=== PATIENT | female | born 1945 | race Caucasian/White ===

== ENCOUNTER 2019-11-27 12:38 | Inpatient (IN) | payer MEDICARE, BC ==
[~2019-11-27] VITALS: Ht 167.6 cm; Wt 85.9 kg
[2019-11-27] MEDS ORDERED: LORA0.5T96 PO (13:30)
[2019-11-27] MEDS ORDERED: ASPI-612 PO (13:30)
[2019-11-27] MEDS ORDERED: EVOL140P3 SQ (13:30)
[2019-11-27] MEDS ORDERED: CEFD300C PO (13:30)
[2019-11-27] MEDS ORDERED: HYDR-2765 PO (13:30)
[2019-11-27] MEDS ORDERED: CARV3.12 PO (13:30)
[2019-11-27] MEDS ORDERED: PANT40TA3 PO (13:31)
[2019-11-27] MEDS ORDERED: GABA-586 PO (13:31)
[2019-11-27] MEDS ORDERED: ZOLP5TAB PO (13:31)
[2019-11-27] MEDS ORDERED: TIOT18CA IH (13:31)
[2019-11-27] MEDS ORDERED: HYDR200T71 PO (13:31)
[2019-11-27] MEDS ORDERED: POLY17PO5 PO (13:31)
[2019-11-27] MEDS ORDERED: FURO-69 PO (13:31)
[2019-11-27] MEDS ORDERED: MELO15TA6 PO (13:31)
--- NOTE | 2019-11-27 13:40 | NUR ---
Admission Note with Justification for Admission to [facility] Patient admitted to [facility] for protective oversight for emergency stabilization of acute psychiatric crisis. Pt admitted from: [facility] 11/19 Mode of arrival: EMS Accompanied By: [facility] Staff Precipitating behaviors that initiated intake and admission: anxiety, depression, crying, yelling Description of failure of out patient attempts at stabilization in previous setting list behavior and medication trials: Ativan Behaviors and assessment findings upon admission: calm, disorganized Plan: Admit for protective oversight for adjustment and stabilization of medications, behaviors and mood. Intense treatment regimen including groups, medication adjustments, therapy, consistent regimen for ADL's, self care, and sleep hygiene. Daily monitoring by Inpatient staff, Psychiatry, and Medical Physician.
[2019-11-27] MEDS ORDERED: MAGNESIUM HYDROXIDE 2,400 MG/30 ML ORAL.SUSP. PO PRN (14:30)
[2019-11-27] MEDS ORDERED: MAG HYDROX/AL HYDROX/SIMETH 30 ML ORAL.SUSP PO PRN (14:30)
[2019-11-27] MEDS ORDERED: HYDROcodone/APAP 7.5/325MG 1 TAB TABLET PO PRN (14:30)
[2019-11-27] MEDS ORDERED: ACETAMINOPHEN 325 MG TABLET PO PRN (14:30)
[2019-11-27] MEDS ORDERED: ZOLPIDEM 5 MG TABLET. PO PRN (14:30)
[2019-11-27] MEDS ORDERED: METHYL SALICYLATE/MENTHOL TOPICAL OINTMENT 57GM TUBE. TP PRN (14:30)
[2019-11-27] MEDS ORDERED: POLYETHYLENE GLYCOL 3350 17 GM PACKET. PO PRN (14:30)
[2019-11-27 14:36] VITALS: BP 125/85
[2019-11-27 15:23] LABS: BASO # 0.1 x10^3/uL (0.0-0.2); BASO % 1 % (0-3); EOS # 0.3 x10^3/uL (0.0-0.7); EOS % 4 % (0-3); HEMATOCRIT 34.7 % (36.0-47.0); HEMOGLOBIN 10.6 g/dL (12.0-15.5); LYMPH # 1.6 x10^3/uL (1.0-4.8); LYMPH % 22 % (24-48); MEAN CORPUSCULAR HEMOGLOBIN 27 pg (25-35); MEAN CORPUSCULAR HGB CONC 31 g/dL (31-37); MEAN CORPUSCULAR VOLUME 89 fL (79-100); MONO # 0.8 x10^3/uL (0.0-1.1); MONO % 11 % (0-9); NEUT # 4.5 x10^3uL (1.8-7.7); NEUT % 62 % (31-73); PLATELET COUNT 220 x10^3/uL (140-400); RED BLOOD COUNT 3.91 x10^6/uL (3.50-5.40); RED CELL DISTRIBUTION WIDTH 17.8 % (11.5-14.5); WHITE BLOOD COUNT 7.4 x10^3/uL (4.0-11.0)
[2019-11-27 15:59] LABS: ALBUMIN 3.5 g/dL (3.4-5.0); ALBUMIN/GLOBULIN RATIO 1.3 (1.0-1.7); CALCIUM 9.1 mg/dL (8.5-10.1); CREATININE 1.4 mg/dL (0.6-1.0); POTASSIUM 4.1 mmol/L (3.5-5.1); TOTAL BILIRUBIN 0.6 mg/dL (0.2-1.0); TOTAL PROTEIN 6.3 g/dL (6.4-8.2)
[2019-11-27] MEDS: IPRATROPIUM/ALBUTEROL 20/100mcg/INH INHALER. INH SCH ×2 (16:00→20:00)
[2019-11-27] MEDS: CARVEDILOL 3.125 MG TABLET PO SCH (17:00)
--- NOTE | 2019-11-27 17:08 | EKG ---
[address] [address] Test Date: 2019-11-27 Test Time: 17:00:41 Pat Name: GRIS NAPIER Department: Room: [address] [place] [address] Gender: F Agent Producer: : [id number] Requested By: ZAYNAB SIMPSON Order Number: [id number] Reading MD: Gibran Burrell Measurements Intervals [place] Rate: 82 P: 42 AR: 176 QRS: 12 QRSD: 116 T: -5 QT: 386 QTc: 454 Interpretive Statements SINUS RHYTHM VENTRICULAR PREMATURE COMPLEX(ES) LOW LIMB LEAD VOLTAGE ABNORMAL ECG RI6.01 No previous ECG available for comparison Electronically Signed On 11-30-2019 8:45:01 CDT by Gibran Burrell
[2019-11-27] MEDS: LORazepam 0.5 MG TABLET PO PRN (17:21)
--- NOTE | 2019-11-27 17:22 | NUR ---
Pt up for supper at bedside table. Pt anxious. Asking for belongings and cell phone. Difficult to redirect. Ativan given.
--- NOTE | 2019-11-27 19:38 | NUR ---
Pt sleeping in bed easily awaken and is pleasant and cooperative. She said she is glad to be able to sleep now. No behaviors at this time. )2 on a 2l per nc.
[2019-11-27] MEDS: HYDROXYCHLOROQUINE 200 MG TABLET PO SCH (21:00)
[2019-11-27] MEDS: CEFDINIR 300 MG CAPSULE PO SCH (21:31)
[2019-11-27] MEDS: PANTOPRAZOLE 40 MG TABLET. PO SCH (21:31)
[2019-11-27] MEDS: MELOXICAM 15 MG TABLET. PO SCH (21:31)
[2019-11-27] MEDS: GABAPENTIN 300 MG CAPSULE. PO SCH (21:34)
[2019-11-27] MEDS: NYSTATIN TOPICAL POWDER 15GM BOTTLE. TP SCH (21:35)
--- NOTE | 2019-11-27 22:00 | PDOC ---
Exam Note: Jesus Note: Please also refer to the separate dictated note~for this date of service dictated separately. Discussed the patient with Nursing staff reviewed the chart.~Reviewed interim history and current functioning. Reviewed vital signs,~Labs/ Radiology~and current medications noted below. Continue current treatment with the changes noted in the dictated addendum note Assessment: Vital Signs/I&O: Vital Signs Date Time Temp Pulse Resp B/P (MAP) Pulse Ox O2 Delivery O2 Flow Rate FiO2 11/27/19 17:00 86 125/85 11/27/19 14:36 97.9 18 98 Nasal Cannula 2.0 Labs: Laboratory Tests Test 11/27/19 15:10 White Blood Count 7.4 x10^3/uL (4.0-11.0) Red Blood Count 3.91 x10^6/uL (3.50-5.40) Hemoglobin 10.6 g/dL (12.0-15.5) L Hematocrit 34.7 % (36.0-47.0) L Mean Corpuscular Volume 89 fL (79-100) Mean Corpuscular Hemoglobin 27 pg (25-35) Mean Corpuscular Hemoglobin Concent 31 g/dL (31-37) Red Cell Distribution Width 17.8 % (11.5-14.5) H Platelet Count 220 x10^3/uL (140-400) Neutrophils (%) (Auto) 62 % (31-73) Lymphocytes (%) (Auto) 22 % (24-48) L Monocytes (%) (Auto) 11 % (0-9) H Eosinophils (%) (Auto) 4 % (0-3) H Basophils (%) (Auto) 1 % (0-3) Neutrophils # (Auto) 4.5 x10^3uL (1.8-7.7) Lymphocytes # (Auto) 1.6 x10^3/uL (1.0-4.8) Monocytes # (Auto) 0.8 x10^3/uL (0.0-1.1) Eosinophils # (Auto) 0.3 x10^3/uL (0.0-0.7) Basophils # (Auto) 0.1 x10^3/uL (0.0-0.2) Sodium Level 141 mmol/L (136-145) Potassium Level 4.1 mmol/L (3.5-5.1) Chloride Level 101 mmol/L (98-107) Carbon Dioxide Level 31 mmol/L (21-32) Anion Gap 9 (6-14) Blood Urea Nitrogen 23 mg/dL (7-20) H Creatinine 1.4 mg/dL (0.6-1.0) H Estimated GFR (Cockcroft-Gault) 37.0 BUN/Creatinine Ratio 16 (6-20) Glucose Level 110 mg/dL (70-99) H Calcium Level 9.1 mg/dL (8.5-10.1) Magnesium Level 2.0 mg/dL (1.8-2.4) Total Bilirubin 0.6 mg/dL (0.2-1.0) Aspartate Amino Transferase (AST) 28 U/L (15-37) Alanine Aminotransferase (ALT) 23 U/L (14-59) Alkaline Phosphatase 145 U/L (46-116) H Total Protein 6.3 g/dL (6.4-8.2) L Albumin 3.5 g/dL (3.4-5.0) Albumin/Globulin Ratio 1.3 (1.0-1.7) Current Medications: Meds: Current Medications Medications (Trade) Dose Ordered Sig/Karla Route PRN Reason Start Time Stop Time Status Last Admin Dose Admin Carvedilol (Coreg) 3.125 mg BIDWMEALS PO 11/27/19 17:00 11/27/19 17:00 Cefdinir (Omnicef) 300 mg BID PO 11/27/19 21:00 11/28/19 21:01 11/27/19 21:31 Gabapentin (Neurontin) 300 mg TID PO 11/27/19 21:00 11/27/19 21:34 Lorazepam (Ativan) 0.5 mg PRN BID PRN PO ANXIETY / AGITATION 11/27/19 14:30 11/27/19 17:21 Meloxicam (Mobic) 15 mg HS PO 11/27/19 21:00 11/27/19 21:31 Pantoprazole Sodium (Protonix) 40 mg HS PO 11/27/19 21:00 11/27/19 21:31 Albuterol/ Ipratropium (Combivent Respimat 20-100 Mcg) 1 puff RTQID INH 11/27/19 16:00 11/27/19 16:00 Nystatin (Nystop) 1 luli BID TP 11/27/19 21:00 11/27/19 21:35 I have reviewed the current psychotropics carefully including drug interactions. Risk benefit ratio favors no change other than as noted in my dictated progress note. Diagnosis: Problems: (1) Anxiety disorder ZAYNAB SIMPSON MD November 27, 2019 21:59
[2019-11-28 03:07] LABS: HEMOGLOBIN A1C 5.8 % (4.8-5.6)
[2019-11-28 05:48] VITALS: BP 126/79
[2019-11-28] MEDS: HYDROcodone/APAP 7.5/325MG 1 TAB TABLET PO SCH ×5 (06:00→23:49)
[2019-11-28 07:07] LABS: THYROXINE 8.3 ug/dL (4.5-12.0)
--- NOTE | 2019-11-28 07:16 | NUR ---
Pt c/o feeling like she can't breathe. Upon assessment vss 130/80, 84, 96% 2L NC 20. Pt is not short of air and is able to carry on a conversation although eye contact is poor. Pt is A & O X 4. Pt is able to answer questions such as how many quarters are in a dollar. Pt is warm, pink, dry. capillary refill is appropriate. no signs or symptoms of cyanosis. Oxygen is on and functioning properly, tubing is not kinked. When speaking with the pt it is determined pt is feeling anxious about the being one of her first days here. PRN ativan offered and accepted by pt.
[2019-11-28] MEDS: LORazepam 0.5 MG TABLET PO PRN ×2 (07:21→20:23)
[2019-11-28] MEDS: IPRATROPIUM/ALBUTEROL 20/100mcg/INH INHALER. INH SCH ×4 (08:35→20:22)
[2019-11-28] MEDS: FUROSEMIDE 20 MG TABLET PO SCH (08:36)
[2019-11-28] MEDS: CEFDINIR 300 MG CAPSULE PO SCH ×2 (08:36→20:22)
[2019-11-28] MEDS: NYSTATIN TOPICAL POWDER 15GM BOTTLE. TP SCH ×2 (08:36→20:22)
[2019-11-28] MEDS: GABAPENTIN 300 MG CAPSULE. PO SCH ×3 (08:36→20:23)
[2019-11-28] MEDS: CARVEDILOL 3.125 MG TABLET PO SCH ×2 (08:36→17:08)
[2019-11-28] MEDS: ASPIRIN ENTERIC COATED 81 MG TABLET.DR. PO SCH (08:36)
[2019-11-28] MEDS: HYDROXYCHLOROQUINE 200 MG TABLET PO SCH ×2 (09:00→20:22)
--- NOTE | 2019-11-28 09:26 | NUR ---
Pt is calm, cooperative and compliant. No agitation, no aggression, no hallucinations, no delusions noted. Pt is compliant with medication and assessment.
[2019-11-28 10:50] LABS: THYROID STIM HORMONE (TSH) 3.946 uIU/mL (0.358-3.740)
[2019-11-28 15:51] VITALS: BP 123/65
[2019-11-28] MEDS: MELOXICAM 15 MG TABLET. PO SCH (20:22)
[2019-11-28] MEDS: PANTOPRAZOLE 40 MG TABLET. PO SCH (20:22)
--- NOTE | 2019-11-28 22:06 | PDOC ---
Exam Note: Jesus Note: Please also refer to the separate dictated note~for this date of service dictated separately. Discussed the patient with Nursing staff reviewed the chart.~Reviewed interim history and current functioning. Reviewed vital signs,~Labs/ Radiology~and current medications noted below. Continue current treatment with the changes noted in the dictated addendum note Assessment: Vital Signs/I&O: Vital Signs Date Time Temp Pulse Resp B/P (MAP) Pulse Ox O2 Delivery O2 Flow Rate FiO2 11/28/19 18:09 20 11/28/19 17:08 82 123/65 11/28/19 15:51 97.3 98 2.0 11/28/19 05:48 Nasal Cannula Current Medications: Meds: Current Medications Medications (Trade) Dose Ordered Sig/Karla Route PRN Reason Start Time Stop Time Status Last Admin Dose Admin Aspirin (Aspirin Enteric Coated) 81 mg DAILY PO 11/28/19 09:00 11/28/19 08:36 Furosemide (Lasix) 20 mg DAILY PO 11/28/19 09:00 11/28/19 08:36 Acetaminophen/ Hydrocodone Bitart (Lortab 7.5/325) 1 tab Q6HRS PO 11/28/19 00:00 11/28/19 17:09 I have reviewed the current psychotropics carefully including drug interactions. Risk benefit ratio favors no change other than as noted in my dictated progress note. Diagnosis: Problems: (1) Anxiety disorder ZAYNAB SIMPSON MD November 28, 2019 22:06
--- NOTE | 2019-11-28 23:07 | NUR ---
Pt located in her room sitting in a chair. Pt anxious and requested PRN Ativan with HS medications. Compliant with whole medications. Pt A/O x4, pleasant and cooperative. Pt states that she has chronic back pain, rating her pain 8/10. Pt unable to sleep, PRN Ambien administered at 2200 per pt request. Pt currently sleeping in bed at this time.
[2019-11-29] MEDS: HYDROcodone/APAP 7.5/325MG 1 TAB TABLET PO SCH ×4 (05:47→23:59)
[2019-11-29 05:48] VITALS: BP 142/86
--- NOTE | 2019-11-29 06:33 | NUR ---
Pt has been labile and confused throughout the night. Pt crying at times, angry and upset, and then laughing uncontrollably at other times. Pt restless and attempting to get out of bed unassisted many times during the night.
[2019-11-29] MEDS: GABAPENTIN 300 MG CAPSULE. PO SCH ×3 (07:50→20:07)
[2019-11-29] MEDS: ASPIRIN ENTERIC COATED 81 MG TABLET.DR. PO SCH (07:50)
[2019-11-29] MEDS: HYDROXYCHLOROQUINE 200 MG TABLET PO SCH ×2 (07:50→20:07)
[2019-11-29] MEDS: NYSTATIN TOPICAL POWDER 15GM BOTTLE. TP SCH (07:50)
[2019-11-29] MEDS: IPRATROPIUM/ALBUTEROL 20/100mcg/INH INHALER. INH SCH ×4 (07:50→20:07)
[2019-11-29] MEDS: CARVEDILOL 3.125 MG TABLET PO SCH ×2 (07:50→17:06)
[2019-11-29] MEDS: FUROSEMIDE 20 MG TABLET PO SCH (07:50)
[2019-11-29] MEDS: LORazepam 0.5 MG TABLET PO PRN ×2 (07:51→20:07)
--- NOTE | 2019-11-29 08:26 | NUR ---
Ativan 0.5mg given per pt behaviors. See PHONOGRAPH MECHANIC note.
[2019-11-29] MEDS ORDERED: traZODone 50 MG TABLET. PO PRN (10:15)
[2019-11-29] MEDS: LURASIDONE 40 MG TABLET. PO SCH (12:22)
--- NOTE | 2019-11-29 12:33 | CONS ---
DATE OF CONSULTATION: 11/29/2019 MEDICAL CONSULTATION NOTE ATTENDING PHYSICIAN: Azeem Cruz MD REASON FOR CONSULTATION: We are asked to see this patient for medical consultation. HISTORY OF PRESENT ILLNESS: The patient is a very pleasant 74-year-old female admitted a couple days ago with agitation, yelling, depression, and some paranoia. She is quite calm when I saw her. She is a little forgetful. She came from home. Lives with her in this region. PAST MEDICAL HISTORY: Significant for generalized anxiety disorder, some underlying dementia, anxiety, depression, gastroesophageal reflux disease and degenerative arthritis. CURRENT MEDICINES: Reviewed. She is on Tylenol, Mylanta, albuterol, Coreg, Lasix, Neurontin, hydrocodone p.r.n., lorazepam, Latuda, magnesium, Mobic, multi ointment balm, nystatin, Zyprexa Zydis, Protonix, MiraLax, Desyrel, and Ambien. ALLERGIES: She has allergies to sulfa drugs, HALDOL, SULFA and TRIMETHOPRIM. Exact cause is unclear. SOCIAL HISTORY: She was a smoker at one time. She does not drink. She is not actively smoking. FAMILY HISTORY: Unobtainable. REVIEW OF SYSTEMS: Significant for the recent anxiety. She does not remember much and could not give any further details. PHYSICAL EXAMINATION: GENERAL: When I saw her, this is a pleasant female who was in no acute distress. INITIAL VITAL SIGNS: Today showed a blood pressure of 142/86, her pulse is 87 and regular, temperature is 97.4 degrees Fahrenheit, oxygen saturation 96% on 2 liters of nasal cannula. HEENT: Head is without trauma. Pupils are reactive. Sclerae is nonicteric. Oropharynx is clear. NECK: Supple. LUNGS: Good breath sounds. No wheezing or rales. CARDIOVASCULAR: Showed regular heart tones. No gallops, no murmurs. Peripheral pulses are palpable and full. ABDOMEN: Obese, protuberant. No organomegaly. Bowel sounds are hypoactive. EXTREMITIES: Show no cyanosis or edema. NEUROLOGIC: Focally intact. Speech is fluent. She was able to respond to some questions. There are some memory issues that are noticeable. PERTINENT LABORATORY STUDIES: Her hemoglobin is 10.6 g/dL with a white count of 7400. Electrolytes were within normal range. Creatinine is 1.4 mg/dL, potassium 4.1 mEq. Serum iron is at 22. Hemoglobin A1c is 5.8. TSH is normal at 3.9. Transaminases and liver function are within normal range. ASSESSMENT: 1. A 74-year-old female with anxiety and behavioral issues admitted for further treatment and evaluation. 2. Probable underlying dementia. 3. Degenerative arthritis. 4. She has iron deficiency anemia. 5. Chronic obstructive pulmonary disease, on supplemental oxygen. 6. History of coronary artery bypass and graft. RECOMMENDATIONS: 1. I reviewed her medicines. 2. Lab work has been reviewed. 3. Diet as tolerated. 4. She is medically stable at this time. Thank you again for asking me to see this patient in consultation. We shall gladly follow along closely during her inpatient stay. ALLA HADLEY MD DR: TAMIKO/bill JOB#: [id number] / [id number]
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
--- NOTE | 2019-11-29 14:08 | NUR ---
Pt anxious and tearful. Thinks collapsed in parking lot and was taken to [facility]. Pt not redirectable. Zydis given. Pt started on Latuda as ordered.
[2019-11-29 15:42] VITALS: BP 110/75
--- NOTE | 2019-11-29 16:41 | NUR ---
Pt spoke with on phone. was somewhat comforted. Pt returned to her bed and laid down. Still intermittently calling out someones name or talking to self. Has been compliant with meds.
[2019-11-29] MEDS ORDERED: NYSTATIN TOPICAL POWDER 15GM BOTTLE. TP PRN (20:00)
[2019-11-29] MEDS: MELOXICAM 15 MG TABLET. PO SCH (20:07)
[2019-11-29] MEDS: PANTOPRAZOLE 40 MG TABLET. PO SCH (20:07)
[2019-11-29] MEDS: traZODone 50 MG TABLET. PO SCH (20:07)
--- NOTE | 2019-11-29 21:52 | PDOC ---
Exam Note: Jesus Note: Please also refer to the separate dictated note~for this date of service dictated separately.~Patient seen individually. Discussed the patient with Nursing staff reviewed the chart.~Reviewed interim history and current functioning. Reviewed vital signs,~Labs/ Radiology~and current medications noted below. Continue current treatment with the changes noted in the dictated addendum note Assessment: Vital Signs/I&O: Vital Signs Date Time Temp Pulse Resp B/P (MAP) Pulse Ox O2 Delivery O2 Flow Rate FiO2 11/29/19 17:06 75 110/75 11/29/19 15:42 98.6 20 95 2.0 11/28/19 05:48 Nasal Cannula I & O 11/28/19 11/28/19 11/29/19 15:00 23:00 07:00 Intake Total 840 ml 240 ml 400 ml Balance 840 ml 240 ml 400 ml Current Medications: Meds: Current Medications Medications (Trade) Dose Ordered Sig/Karla Route PRN Reason Start Time Stop Time Status Last Admin Dose Admin Trazodone HCl (Desyrel) 50 mg QHS PO 11/29/19 21:00 11/29/19 20:07 Trazodone HCl (Desyrel) 50 mg PRN QHS PRN PO INSOMNIA 11/29/19 10:15 11/29/19 21:38 Olanzapine (ZyPREXA ZYDIS) 2.5 mg PRN Q2HR PRN PO ANXIETY / AGITATION 11/29/19 10:15 11/29/19 20:58 Lurasidone HCl (Latuda) 20 mg DAILY PO 11/29/19 11:00 12/02/19 08:00 11/29/19 12:22 I have reviewed the current psychotropics carefully including drug interactions. Risk benefit ratio favors no change other than as noted in my dictated progress note. Diagnosis: Problems: (1) Mild cognitive impairment (2) Major depressive disorder with psychotic features (3) Anxiety disorder ZAYNAB SIMPSON MD November 29, 2019 21:52
[2019-11-29] MEDS ORDERED: OLANZapine 2.5 MG TABLET PO ONE (22:30)
[2019-11-29] MEDS: hydrOXYzine HCL 25 MG TABLET PO PRN ×2 (22:33→23:59)
--- NOTE | 2019-11-29 23:42 | NUR ---
Pt extremely anxious this evening. Pt's bed alarm was going off early in the shift and staff found pt crawling around on the floor looking for her "3 pills" that she dropped. Pt refused to believe this RN that pt was not given 3 pills. Pt stated they were just in my hand. Pt more confused this evening. Compliant with whole medications. Pt extremely restless and compulsive. Once pt was placed in bed, pt asked to be moved to her chair. Pt was transferred from bed to chair and back to bed x2 until she was informed that she would be staying in bed the rest of the night. Pt taken to the bathroom x2 where she was unable to void. Bladder scan performed, revealing <130cc. While in bed, pt has attempted to get out of bed continuously. Pt has been fidgeting with her O2 tubing, her gown, her sheets, her pillows, anything that she can touch. Pt has been constantly hallucinating, carrying on conversations with people that are not here and seeing things. Staff has been 1:1 at pt's bedside continuously since 2099. Pt has been given multiple PRNs and Dr. Cruz has been paged for new orders. Ativan @2029; Zyprexa @2099; repeat Trazodone @2139; Zyprexa 5mg x1 @2029, Hydroxyzine @2029. Staff currently at bedside. Will continue to monitor. Addendum: 11/30/19 at 0018 by CYNDY KOCH RN Correction: Zyprexa 5mg x1 and Hydroxyzine administered at 2230. Repeat Hydroxyzine administered at 2350 r/t pt's restlessness. Staff continues to be 1:1 with pt.
[2019-11-30] MEDS: HYDROcodone/APAP 7.5/325MG 1 TAB TABLET PO SCH ×3 (06:01→16:37)
--- NOTE | 2019-11-30 06:21 | NUR ---
PRN's not effective with pt. Pt awake all night, extremely restless and fidgeting non stop. Pt disrobing, pulling at sheets, taking off O2 tubing. Pt constantly responding to auditory and visual hallucinations. Pt yelling out. Pt became more agitated and combative as the night went on; attempting to hit and kick staff when redirecting. Pt was a 1:1 with staff at bedside all night.
[2019-11-30] MEDS: FUROSEMIDE 20 MG TABLET PO SCH (07:50)
[2019-11-30] MEDS: GABAPENTIN 300 MG CAPSULE. PO SCH ×3 (07:50→21:13)
[2019-11-30] MEDS: CARVEDILOL 3.125 MG TABLET PO SCH ×3 (07:50→16:38)
[2019-11-30] MEDS: ASPIRIN ENTERIC COATED 81 MG TABLET.DR. PO SCH (07:50)
[2019-11-30] MEDS: LURASIDONE 40 MG TABLET. PO SCH (07:51)
[2019-11-30] MEDS: HYDROXYCHLOROQUINE 200 MG TABLET PO SCH ×2 (07:51→21:13)
[2019-11-30] MEDS: IPRATROPIUM/ALBUTEROL 20/100mcg/INH INHALER. INH SCH ×5 (07:51→21:14)
--- NOTE | 2019-11-30 08:30 | NUR ---
Patient is restless, agitated and delusional. She continuously is getting up out of bed, sitting in her chair, and moving back to bed within a few minutes. She has had frequent trips to the restroom without output. At one point she was demanding to be allowed to go upstairs, then she wanted a large piece of bread. Verbal redirection not effective, patient is not retaining information. She was unable to recognize staff that had been in her room multiple times this morning. PRN medication provided per eMAR, will continue to monitor.
[2019-11-30] MEDS: LORazepam 0.5 MG TABLET PO PRN (08:34)
[2019-11-30] MEDS ORDERED: LURASIDONE 40 MG TABLET. PO SCH (09:00)
[2019-11-30 09:48] VITALS: BP 139/75
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
--- NOTE | 2019-11-30 12:26 | NUR ---
Patient was talking to herself while lying in bed when approached for afternoon medications. Patient continues attempting to get out of bed on her own despite being very unsteady on her feet. Scheduled medications provided per eMAR and patient assisted into her chair for lunch. She continues to be restless and disorganized; will continue to monitor.
[2019-11-30 13:53] LABS: BACTERIA,URINE 0 /HPF (0-FEW); BILIRUBIN,URINE NEG (NEG); CLARITY,URINE HAZY; COLOR,URINE YELLOW; GLUCOSE,URINE NEG (NEG); NITRITE,URINE NEG (NEG); SQUAMOUS EPITHELIAL CELL,UR FEW /LPF; UROBILINOGEN,URINE 0.2 mg/dL (0.2 mg/dL)
[2019-11-30 13:54] LABS: HYALINE CASTS, URINE MOD /HPF
[2019-11-30 13:58] LABS: WBC,URINE 20-40 /HPF (0-4)
[2019-11-30 16:00] VITALS: BP 123/79
[2019-11-30] MEDS: PANTOPRAZOLE 40 MG TABLET. PO SCH (21:13)
[2019-11-30] MEDS: traZODone 50 MG TABLET. PO SCH (21:13)
[2019-11-30] MEDS: MELOXICAM 15 MG TABLET. PO SCH (21:13)
--- NOTE | 2019-11-30 22:04 | PDOC ---
Exam Note: Jesus Note: Please also refer to the separate dictated note~for this date of service dictated separately.~Patient seen individually. Discussed the patient with Nursing staff reviewed the chart.~Reviewed interim history and current functioning. Reviewed vital signs,~Labs/ Radiology~and current medications noted below. Continue current treatment with the changes noted in the dictated addendum note Assessment: Vital Signs/I&O: Vital Signs Date Time Temp Pulse Resp B/P (MAP) Pulse Ox O2 Delivery O2 Flow Rate FiO2 11/30/19 19:20 18 94 Room Air 11/30/19 16:38 104 123/79 11/30/19 16:00 97.7 2.0 I & O 11/29/19 11/29/19 11/30/19 15:00 23:00 07:00 Intake Total 600 ml 480 ml Balance 600 ml 480 ml Labs: Laboratory Tests Test 11/30/19 12:55 Urine Collection Type Unknown Urine Color Yellow Urine Clarity Hazy Urine pH 5.0 Urine Specific Dundee >=1.030 Urine Protein 100 mg/dl (NEG-TRACE) Urine Glucose (UA) Neg mg/dL (NEG) Urine Ketones (Stick) Neg mg/dL (NEG) Urine Blood Trace (NEG) Urine Nitrite Neg (NEG) Urine Bilirubin Neg (NEG) Urine Urobilinogen Dipstick 0.2 mg/dL (0.2 mg/dL) Urine Leukocyte Esterase Trace (NEG) Urine RBC 3-5 /HPF (0-2) Urine WBC 20-40 /HPF (0-4) Urine Squamous Epithelial Cells Few /LPF Urine Bacteria 0 /HPF (0-FEW) Urine Hyaline Casts Mod /HPF Urine Mucus Mod /LPF Current Medications: Meds: Current Medications Medications (Trade) Dose Ordered Sig/Karla Route PRN Reason Start Time Stop Time Status Last Admin Dose Admin Olanzapine (ZyPREXA) 5 mg 1X ONCE PO 11/29/19 22:30 11/29/19 22:31 DC 11/29/19 22:32 Hydroxyzine HCl (Atarax) 25 mg 1X PRN PO ANXIETY / AGITATION 11/29/19 22:30 11/30/19 07:00 DC 11/29/19 23:59 I have reviewed the current psychotropics carefully including drug interactions. Risk benefit ratio favors no change other than as noted in my dictated progress note. Diagnosis: Problems: (1) Anxiety disorder (2) Mild cognitive impairment (3) Major depressive disorder with psychotic features ZAYNAB SIMPSON MD November 30, 2019 22:03
--- NOTE | 2019-11-30 23:46 | PN ---
DATE: 11/29/2019 PSYCHIATRIC PROGRESS NOTE This late entry 11/29/2019 covers elements not covered in my initial note. SUBJECTIVE: I met with the patient evening of 11/29/2019 with MINNIE Robles. After my rounds and late at night around 10:15 p.m., I was called by MINNIE Mckeon on account of the patient's marked restlessness, anxiety, paranoia, unable to sit still despite receiving trazodone and 2 doses of Zyprexa and 1 dose of Ativan 0.5 mg and we added hydroxyzine p.r.n. and an additional dosage of Zyprexa 5 mg x 1 for her paranoia, psychosis. She was restless much of the day, calling out for her who she felt was in the parking lot and had collapsed. Suspicious. She is hard of hearing, which complicates her presentation. REVIEW OF SYSTEMS: No CV, , pulmonary, eye system symptoms on review. MENTAL STATUS EXAM: Oriented to herself and situation. Speech has some latency, coherent, can be little pressured at times. Abstraction fair, computation impaired, language function intact. Mood and affect remains labile. LABORATORY DATA: Reviewed. IMPRESSION: Major depressive disorder; mild cognitive impairment; psychotic disorder unspecified, rule out bipolar disorder, unspecified. Rest unchanged. PLAN: The patient's phenelzine has been stopped. She has been started on Latuda as a mood stabilizer, trazodone p.r.n., Zyprexa p.r.n. and above changes as noted. We will adjust further as clinically indicated. ZAYNAB SIMPSON MD DR: JEREMIE/bill JOB#: [id number] / [id number]
--- NOTE | 2019-12-01 02:44 | NUR ---
Nursing Note The patient was located in her room for her assessment and medication pass. The patient took her medication whole. The patient was initially resistive to all interactions with this nurse but after introductions and a second attempt the patient was pleasant and cooperative. The patient is currently sleeping in her room.
[2019-12-01] MEDS: HYDROcodone/APAP 7.5/325MG 1 TAB TABLET PO SCH ×4 (06:00→16:34)
[2019-12-01 06:08] VITALS: BP 123/76
[2019-12-01] MEDS ORDERED: EVOLOCUMAB 140 MG SQ SCH (09:00)
--- NOTE | 2019-12-01 09:14 | PN ---
DATE: 11/30/2019 PSYCHIATRIC PROGRESS NOTE This late entry 11/29 covers elements not covered in my initial note. SUBJECTIVE: I met with the patient evening of 11/29 on audiovisual rounds in previous evening, had been called by MINNIE Mckeon, as an emergency around 10:30 p.m. The patient was extremely agitated, restless, paranoid. Received multiple PRNs including Ativan, Zyprexa, trazodone, repeat Zyprexa and then hydroxyzine She has appeared quite sedated, confused during the day on 11/29. Part of this could be the multiple PRNs she received previous night and she did not sleep well even with all of that. CT head shows no acute changes, but there is cerebral volume loss, chronic small vessel ischemic disease, thickened mucosa in the left maxillary sinus. Will defer to Dr. Escalante. REVIEW OF SYSTEMS: Hard of hearing, impaired ambulation, is quite confused. No CV, GI, or pulmonary system symptoms on review. MENTAL STATUS EXAMINATION: The patient appears quite confused, somewhat sedated with mood lability. I met with her on audiovisual rounds. Speech has some latency, often responses monosyllabic. Attention span short. Language function intact. No active suicidal or homicidal ideation. LABORATORY DATA: Reviewed as above. IMPRESSION: Major depressive disorder, recurrent with psychotic features; mild cognitive impairment versus major neurocognitive disorder, early vascular with delusion; depression. Rest unchanged. PLAN: Continue psychotropics. Await results of the UA which was repeated and has reflux to culture and this could account for some of mental status changes. Maintain Latuda 20 mg a day, increasing to 40 mg a day on 12/01. She remains on Ativan p.r.n., trazodone scheduled and p.r.n. We will stop the Ambien and increase the trazodone to 100 mg at bedtime, may repeat x 1 p.r.n. for insomnia. Await results of UA, C and S. Defer to Dr. Escalante. MAN Mita SIMPSON MD DR: JEREMIE/bill JOB#: [id number] / [id number]
--- NOTE | 2019-12-01 09:19 | NUR ---
Patient is asleep. Nurse will give medications when patient wakes up. Breakfast tray held as well.
[2019-12-01] MEDS: IPRATROPIUM/ALBUTEROL 20/100mcg/INH INHALER. INH SCH ×2 (10:40→11:33)
[2019-12-01] MEDS: GABAPENTIN 300 MG CAPSULE. PO SCH ×2 (11:02→11:31)
--- NOTE | 2019-12-01 11:15 | NUR ---
Nurse in patients room to assess patient. Patient is still asleep. Nurse obtained patients vital signs, patient did not wake up during vitals. Patient on 2L oxygen via NC, has regular respiratory rate and is softly snoring. BP 105/69, P 104, R 17, O2 93% NC. Will continue to monitor and administer medications when patient awakens.
[2019-12-01 11:24] VITALS: BP 105/59
[2019-12-01] MEDS: LURASIDONE 40 MG TABLET. PO SCH (11:32)
[2019-12-01] MEDS: CARVEDILOL 3.125 MG TABLET PO SCH ×2 (11:32→16:33)
[2019-12-01] MEDS: HYDROXYCHLOROQUINE 200 MG TABLET PO SCH (11:33)
[2019-12-01] MEDS: FUROSEMIDE 20 MG TABLET PO SCH (11:33)
[2019-12-01] MEDS: ASPIRIN ENTERIC COATED 81 MG TABLET.DR. PO SCH (11:33)
--- NOTE | 2019-12-01 12:11 | NUR ---
Patient remains very sleepy. Staff was able to get her to eat the tapioca pudding that came on lunch tray and drink some ensure. Medications were administered crushed in applesauce. Patient remains very drowsy and is in bed with side rail up and bed alarm on for safety.
--- NOTE | 2019-12-01 13:19 | NUR ---
Held 1200 scheduled hydrocodone/APAP as patient is very drowsy and sleeping. She does not appear to be in pain and would not answer pain level or orientation questions r/t level of drowsiness. It was reported to this nurse that this patient hadn't slept in several days.
[2019-12-01 16:09] VITALS: BP 101/76
--- NOTE | 2019-12-01 16:17 | NUR ---
Patient remains very drowsy. Staff is able to rouse her but she falls back asleep. Her speech is slow and somewhat garbled sounding, staff reported to this nurse that this is a change in condition for this patient from previous days. Vital signs obtained 101/76, pulse 90, oxygen sat 90% on 2L NC, resp 20. Her lungs sound "wet" when listened to by this nurse. She is not coughing and is afebrile. Paged Dr. Wheat regarding patients change in condition. Received order for portable chest x-ray 1 view, discontinuation of gabapentin and lasix. Dr Cruz ordered CBC and CMP.
[2019-12-01 16:33] VITALS: BP 101/76
--- NOTE | 2019-12-01 17:33 | RAD ---
EXAM: CHEST AP ONLY INDICATION: Shallow breathing, unresponsive.. TECHNIQUE: Single AP view COMPARISON: None FINDINGS: Heart is enlarged. Sternotomy wires are present. Great vessels show tortuosity of the thoracic aorta with apparent widening of the mediastinum and centimeters on this projection. There is no hilar or mediastinal mass. Lungs are hypoventilatory. Right leg like atelectasis in the midlung is present. There is a small right pleural effusion and haziness in the left lung base that could represent a small pleural effusion as well. There are no significant osseous abnormalities. IMPRESSION: Cardiomegaly and mediastinal widening that could reflect aortic tortuosity and mediastinal lipomatosis status post previous median sternotomy. There is a small right pleural effusion and probable small left pleural effusion as well. No pneumothorax. Electronically signed by: Nazario Green MD (12/01/2019 5:30 PM) [id number]
[2019-12-01 17:49] LABS: BASO # 0.2 x10^3/uL (0.0-0.2); BASO % 1 % (0-3); EOS % 0 % (0-3); HEMATOCRIT 39.3 % (36.0-47.0); HEMOGLOBIN 11.5 g/dL (12.0-15.5); LYMPH # 0.8 x10^3/uL (1.0-4.8); LYMPH % 3 % (24-48); MEAN CORPUSCULAR HEMOGLOBIN 27 pg (25-35); MEAN CORPUSCULAR HGB CONC 29 g/dL (31-37); MEAN CORPUSCULAR VOLUME 91 fL (79-100); MONO % 7 % (0-9); NEUT % 89 % (31-73); PLATELET COUNT 307 x10^3/uL (140-400); RED BLOOD COUNT 4.33 x10^6/uL (3.50-5.40); RED CELL DISTRIBUTION WIDTH 18.6 % (11.5-14.5)
[2019-12-01 17:55] LABS: WHITE BLOOD COUNT 28.1 x10^3/uL (4.0-11.0)
--- NOTE | 2019-12-01 17:57 | NUR ---
Staff had been watching patient closely this day as she was very sleepy and hard to arouse most of the day. Staff rounding at 15 minute checks were barely able to rouse patient with sternal rub and called nurse to patients room. The patients condition had deteriorated from earlier when Dr. Wheat had been paged and had ordered stat chest xray, Dr. Cruz had ordered stat labs. The patients blood pressure continued to slowly drop. Patient on NC 2L and would only sat in the mid 70's. [facility] staff turned up oxygen switched to mask for oxygen while calling for rapid response at 1714. Nursing real estate office supervisor, respiratory, lab, ICU nurse, security and community living specialist/senior technical support engineer and MINNIE English from south responded quickly to unit. Staff bagged patient while AED pads were placed, rhythm was analyzed. Maddi nurse real estate office supervisor called rivera blue at 1724 as patients oxygenation continued to drop. Blood pressure increased then dropped again. Dr Reyes and Alexandru Retort Firer came from ER. Patients condition did not improve. Stat chest xray had been ordered earlier but was not yet resulted. patient has urine culture pending, lab contacted and hospital has received no preliminary results. Dr Wheat was called and gave order to admit the patient to ICU. Dr. Reyes ordered additional labs and patient was transferred to ICU immediately. Preliminary diagnosis was probable sepsis. Patients DPOA, spouse Barbara Julian was notified at 1756 and made aware of patients condition and transfer.
[2019-12-01] MEDS ORDERED: NALOXONE 0.4 MG/ML VIAL. ONE (18:01)
[2019-12-01] MEDS ORDERED: FLUMAZENIL 0.5 MG/5 ML VIAL. IV ONE (18:02)
--- NOTE | 2019-12-01 18:20 | NUR ---
Transition Record was faxed to follow-up provider with the following elements: Reason for admission, procedures, tests, principal diagnosis, pending studies, patient instructions, 18/02 contact information for unit, phone number to obtain pending test results, plan for follow-up care, physician follow-up, advanced directive information, and medication list with dose, duration and instructions. This information was included in the following documents: History and physical, lab results, study results, progress notes, social work planning form, DC instruction form, patient visit summary, and medication reconciliation form. Date & time record faxed: 12/01/19 0319 Record faxed to: 1 south/icu side. Record discussed with/ report given to: Tameka Whiteside RN
[2019-12-01 19:08] LABS: % BANDS 1 % (0-9); % LYMPHS 4 % (24-48); % MONOS 6 % (0-10); % SEGS 89 % (35-66)
[2019-12-01 19:09] LABS: PLT ESTIMATE ADEQUATE (ADEQUATE)
[2019-12-01 19:16] LABS: ALBUMIN 3.5 g/dL (3.4-5.0); ALBUMIN/GLOBULIN RATIO 1.3 (1.0-1.7); CALCIUM 7.5 mg/dL (8.5-10.1); CREATININE 2.7 mg/dL (0.6-1.0); GFR 17.3; TOTAL PROTEIN 6.2 g/dL (6.4-8.2)
[2019-12-01 19:26] LABS: POTASSIUM 6.3 mmol/L (3.5-5.1)
--- NOTE | 2019-12-01 21:53 | PDOC ---
Exam Note: Jesus Note: Please also refer to the separate dictated note~for this date of service dictated separately.~Patient seen individually. Discussed the patient with Nursing staff reviewed the chart.~Reviewed interim history and current functioning. Reviewed vital signs,~Labs/ Radiology~and current medications noted below. Continue current treatment with the changes noted in the dictated addendum note Assessment: Vital Signs/I&O: Vital Signs Date Time Temp Pulse Resp B/P (MAP) Pulse Ox O2 Delivery O2 Flow Rate FiO2 12/01/19 16:33 88 101/76 12/01/19 16:09 98.1 20 90 Nasal Cannula 0.2 I & O 11/30/19 11/30/19 12/01/19 14:59 22:59 06:59 Intake Total 660 ml 60 ml Balance 660 ml 60 ml Labs: Laboratory Tests Test 12/01/19 17:37 12/01/19 18:15 White Blood Count 28.1 x10^3/uL (4.0-11.0) H Red Blood Count 4.33 x10^6/uL (3.50-5.40) Hemoglobin 11.5 g/dL (12.0-15.5) L Hematocrit 39.3 % (36.0-47.0) Mean Corpuscular Volume 91 fL (79-100) Mean Corpuscular Hemoglobin 27 pg (25-35) Mean Corpuscular Hemoglobin Concent 29 g/dL (31-37) L Red Cell Distribution Width 18.6 % (11.5-14.5) H Platelet Count 307 x10^3/uL (140-400) Neutrophils (%) (Auto) 89 % (31-73) H Lymphocytes (%) (Auto) 3 % (24-48) L Monocytes (%) (Auto) 7 % (0-9) Eosinophils (%) (Auto) 0 % (0-3) Basophils (%) (Auto) 1 % (0-3) Neutrophils # (Auto) 25.0 x10^3uL (1.8-7.7) H Lymphocytes # (Auto) 0.8 x10^3/uL (1.0-4.8) L Monocytes # (Auto) 2.0 x10^3/uL (0.0-1.1) H Eosinophils # (Auto) 0.0 x10^3/uL (0.0-0.7) Basophils # (Auto) 0.2 x10^3/uL (0.0-0.2) Segmented Neutrophils % 89 % (35-66) H Band Neutrophils % 1 % (0-9) Lymphocytes % 4 % (24-48) L Monocytes % 6 % (0-10) Platelet Estimate Adequate (ADEQUATE) Sodium Level 139 mmol/L (136-145) Potassium Level 6.3 mmol/L (3.5-5.1) *H Chloride Level 101 mmol/L (98-107) Carbon Dioxide Level 29 mmol/L (21-32) Anion Gap 9 (6-14) Blood Urea Nitrogen 67 mg/dL (7-20) H Creatinine 2.7 mg/dL (0.6-1.0) H Estimated GFR (Cockcroft-Gault) 17.3 BUN/Creatinine Ratio 25 (6-20) H Glucose Level 162 mg/dL (70-99) H Calcium Level 7.5 mg/dL (8.5-10.1) L Total Bilirubin 1.0 mg/dL (0.2-1.0) Aspartate Amino Transferase (AST) 2398 U/L (15-37) H Alanine Aminotransferase (ALT) 334 U/L (14-59) H Alkaline Phosphatase 172 U/L (46-116) H Total Protein 6.2 g/dL (6.4-8.2) L Albumin 3.5 g/dL (3.4-5.0) Albumin/Globulin Ratio 1.3 (1.0-1.7) Lactic Acid Level 3.1 mmol/L (0.4-2.0) H Current Medications: Meds: Current Medications Medications (Trade) Dose Ordered Sig/Karla Route PRN Reason Start Time Stop Time Status Last Admin Dose Admin Non-Formulary Medication (Evolocumab (Repatha Buddyick)) 140 mg Q2WKS SQ 12/01/19 09:00 12/01/19 17:48 DC 12/01/19 11:34 I have reviewed the current psychotropics carefully including drug interactions. Risk benefit ratio favors no change other than as noted in my dictated progress note. Diagnosis: Problems: (1) Anxiety disorder (2) Mild cognitive impairment (3) Major depressive disorder with psychotic features (4) Sepsis (5) Major neurocognitive disorder (6) Dementia, vascular, with delusions (7) Dementia, vascular, with depression ZAYNAB SIMPSON MD December 01, 2019 21:53
[2019-12-02] MEDS ORDERED: LURASIDONE 40 MG TABLET. PO SCH (09:00)
--- NOTE | 2019-12-02 20:24 | DS ---
DATE OF DISCHARGE: 12/01/2019 PSYCHIATRIC PROGRESS NOTE This late entry date of service 12/01/2019, covers elements not covered in my initial note. REASON FOR ADMISSION: Please refer to the admission history for details. Briefly, the patient is a 74-year-old female referred to us from [facility] where she was admitted from home where she resides with her . While at [place], she had been agitated, yelling at providers, anxious, depressed, paranoid. She has a long history of major depressive disorder, treated on Nardil and this had been discontinued while she was at [facility], being medically stabilized. Given the above behaviors and history of delirium and agitation, she was referred for psychiatric stabilization after she was seen for a psychiatric consult by Dr. Salas at [facility]. SIGNIFICANT FINDINGS AND CLINICAL COURSE: Following admission, the patient was seen daily individually by myself from a psychiatric standpoint, medically followed by Dr. Wheat. The patient was quite anxious, restless, somewhat delirious at times. At times, she was more oriented than other times. At other time, she was crawling on the floor as part of her delirium. She was maintained on a low tyramine diet since the Nardil had been stopped shortly before she was admitted to us and the plan was to change to an SSRI agent, which she was agreeable to this. She received p.r.n. Zyprexa and Ativan for her agitation/delirium. At one point on 12/01/2019, she was quite sedated during the day. She slept 4-3/4 hours the previous night. I discussed the patient with MINNIE Kemp evening of 12/01/2019. Her oxygen sats were 90% on 2 liters, blood pressure was 101/76. Chest x-ray was ordered by Dr. Wheat and showed infiltrates and CBC and CMP were ordered as well. Dr. Wheat had stopped the patient's Neurontin and Lasix and given the pneumonia and low oxygen sats, she was transferred to the medical/surgical floor evening of 12/01/2019. I did call the nursing staff evening of 12/01/2019 on the medical/surgical floor and the patient had been started on dopamine drip for her low blood pressure and received 1 liter of fluids. Since followed up with Dr. Escalante during the day today, took over from Dr. Wheat as the patient was transferred to [facility] morning of 12/02/2019 for further medical management of her pneumonia and acute kidney injury. I did talk to Dr. Escalante evening of 12/01/2019 and reportedly the patient has been intubated and is being medically stabilized. Prior to discharge on 12/01/2019, she remains somewhat sedated, but given the complexity of her medical diagnosis, this was understandable. She remains hard of hearing, but there was no specific suicidal or homicidal ideation. FINAL DIAGNOSES: From a psychiatric standpoint major depressive disorder, recurrent; anxiety disorder, unspecified; mild cognitive impairment, delirium due to general medical condition and pneumonia. Rest diagnosis unchanged from admission. DISCHARGE MEDICATIONS: When I called the nursing staff on the medical/surgical floor evening of 12/01/2019, I did ask them to stop all her psychotropics until she was medically stabilized and reminded them to keep her on low tyramine diet for about 2 weeks since the Nardil had been recently discontinued. We will have to reassess her psychotropics when she is medically stable and if she returns back to us for further psychiatric management. Time for discharge day management greater than 30 minutes. MAN Mita SIMPSON MD DR: JEREMIE/bill JOB#: [id number] / [id number]
--- NOTE | 2019-12-02 22:20 | PDOC ---
Exam Note: Jesus Note: Please also refer to the separate dictated note~for this date of service dictated separately.~Patient seen individually. Discussed the patient with Nursing staff reviewed the chart.~Reviewed interim history and current functioning. Reviewed vital signs,~Labs/ Radiology~and current medications noted below. Continue current treatment with the changes noted in the dictated addendum note Assessment: Vital Signs/I&O: Vital Signs Date Time Temp Pulse Resp B/P (MAP) Pulse Ox O2 Delivery O2 Flow Rate FiO2 12/01/19 16:33 88 101/76 12/01/19 16:09 98.1 20 90 Nasal Cannula 0.2 I & O 12/01/19 12/01/19 12/02/19 15:00 23:00 07:00 Intake Total 180 ml Balance 180 ml Labs: Laboratory Tests Test 12/01/19 23:59 Lactic Acid Level 4.4 mmol/L (0.4-2.0) *H Current Medications: I have reviewed the current psychotropics carefully including drug interactions. Risk benefit ratio favors no change other than as noted in my dictated progress note. Diagnosis: Problems: (1) Delirium due to general medical condition (2) Anxiety disorder (3) Mild cognitive impairment (4) Major depressive disorder with psychotic features (5) Sepsis (6) Dementia, vascular, with depression (7) Dementia, vascular, with delusions (8) Major neurocognitive disorder ZAYNAB SIMPSON MD December 02, 2019 22:20
== END 2019-12-01 17:47 | disposition short-term general hospital (02) | DRG 885 ==
LOC: GEROPSY 13:38
PROVIDERS: ADMIT Psychiatry & Neurology Psychiatry; ATTEND Psychiatry & Neurology Psychiatry
DX: F33.3 Major depressive disorder, recurrent, severe with psychotic symptoms (principal); A41.9 Sepsis, unspecified organism; J18.9 Pneumonia, unspecified organism; F05 Delirium due to known physiological condition; J44.0 Chronic obstructive pulmonary disease with (acute) lower respiratory infection; N17.9 Acute kidney failure, unspecified; F01.50 Vascular dementia, unspecified severity, without behavioral disturbance, psychotic disturbance, mood disturbance, and anxiety; D50.9 Iron deficiency anemia, unspecified; F41.1 Generalized anxiety disorder; I50.9 Heart failure, unspecified; M19.90 Unspecified osteoarthritis, unspecified site; Z87.891 Personal history of nicotine dependence; Z95.1 Presence of aortocoronary bypass graft; G89.29 Other chronic pain; K21.9 Gastro-esophageal reflux disease without esophagitis; M54.5 Low back pain; Z88.1 Allergy status to other antibiotic agents; Z88.2 Allergy status to sulfonamides
CPT/HCPCS: 36415; 71045; 80053; 80061; 81001; 82306; 82607; 83036; 83540; 83550; 83605; 83735; 84436; 84443; 84480; 85007; 85025; 86592; 87040; 87086; 93005; 97116; 97530

== ENCOUNTER 2019-12-01 17:42 | Inpatient (IN) | payer MEDICARE, BC ==
[2019-12-01] VITALS (27 sets, daily range): BP systolic 50–131; BP diastolic 23–86
[~2019-12-01] VITALS: Ht 167.6 cm; Wt 87.4 kg
[~2019-12-01 17:42] MED LIST: ASPI-612 PO; CARV3.12 PO; CEFD300C PO; EVOL140P3 SQ; FURO-69 PO; GABA-586 PO; HYDR-2765 PO; HYDR200T71 PO; LORA0.5T96 PO; MELO15TA6 PO; PANT40TA3 PO; POLY17PO5 PO; TIOT18CA IH; ZOLP5TAB PO
[2019-12-01] MEDS ORDERED: NALOXONE 0.4 MG/ML VIAL. IV ONE ×2 (18:30→19:00)
[2019-12-01] MEDS ORDERED: FLUMAZENIL 0.5 MG/5 ML VIAL. IV ONE ×2 (18:30)
[2019-12-01] MEDS ORDERED: IV NORMAL SALINE 1,000ML 1,000 ML IV ONE (19:15)
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
--- NOTE | 2019-12-01 20:09 | RAD ---
CT HEAD WO CONTRAST History: Unresponsive, altered mental status Comparison: None. Technique: Noncontrast CT imaging was performed of the head. Exposure: One or more of the following individualized dose reduction techniques were utilized for this examination: 1. Automated exposure control 2. Adjustment of the mA and/or kV according to patient size 3. Use of iterative reconstruction technique. Findings: No acute extra-axial or parenchymal hemorrhage is identified. There is no significant intra-axial mass effect, midline shift, or extra-axial fluid collection. The villagomez-white differentiation of the major vascular territories is preserved. Ventricular size is proportionate to sulcal spaces, mild generalized supratentorial involutional change. There is some scattered at least mild ill-defined low-density of the supratentorial parenchyma bilaterally. The mastoid air cells and the visualized paranasal sinuses are aerated. No acute calvarial abnormality is identified. Impression: 1. No acute intracranial abnormality is identified. There is ill-defined low-density of the supratentorial parenchyma, nonspecific findings more commonly due to chronic microvascular ischemic disease in a patient this age. There is mild generalized supratentorial atrophy. Electronically signed by: Williams Lynne MD (12/01/2019 8:06 PM) [facility]
--- NOTE | 2019-12-01 20:16 | RAD ---
CT CHEST WO CONTRAST Indication: Abnormal chest x-ray, shallow breaths Technique: Noncontrast CT imaging was performed of the chest, multiplanar reconstruction images submitted. One or more of the following individualized dose reduction techniques were utilized for this examination: 1. Automated exposure control 2. Adjustment of the mA and/or kV according to patient size 3. Use of iterative reconstruction technique. Comparison: Chest radiograph the same day; chest CTA 09/11/2018 Findings: There is motion degradation. There are small dependent pleural effusions bilaterally, right greater than left. Heart is enlarged and greater in size than previous CT exam. Thoracic aortic caliber is within normal limits, scattered plaque. There is coronary calcification. Precarinal node on the right is more largest about 1.8 cm short axis dimension versus previously 0.9 cm, also probable degree of right hilar lymphadenopathy otherwise difficult to characterize on this exam. Right paratracheal node measures about 1.1 cm axis dimension versus previously 0.5 cm. There has been median sternotomy as seen previously. There is no pneumothorax. There is emphysema with upper zone predominance. There is mild right lower lobe infiltrate with air bronchograms, also more linear density of the right upper lobe likely component of atelectasis and mild infiltrate. There is minimal free fluid near the visualized spleen. IMPRESSION: 1. Heart is more enlarged than previous 2019 exam. There are small dependent pleural effusions right greater than left which can be associated with heart failure although nonspecific. There is mild right lower lobe infiltrate and mild right upper lobe atelectasis/infiltrate. There is increased nonspecific mediastinal lymphadenopathy, also probably of the right hilar region. 2. There is coronary calcification. 3. There is minimal free fluid near the visualized spleen. 4. There is emphysema. Electronically signed by: Williams Lynne MD (12/01/2019 8:13 PM) [facility]
[2019-12-01 20:51] LABS: BGAS PH 7.2 (7.35-7.45)
[2019-12-02] VITALS (12 sets, daily range): BP systolic 110–145; BP diastolic 38–81
--- NOTE | 2019-12-02 08:34 | RAD ---
CHEST AP ONLY 12/02/2019 7:18 AM INDICATION: Hypoxia COMPARISON: 12/01/2019 TECHNIQUE: Portable frontal view of the chest is provided. FINDINGS: The cardiomediastinal silhouette is similar in appearance. Median sternotomy changes are present. Small to moderate right pleural effusion with adjacent compressive atelectasis versus infiltrate appears similar to prior examination. There is left retrocardiac density which may represent atelectasis versus infiltrate. Trace left pleural effusion. Patient is rotated, limiting evaluation. Stable right hilar prominence, likely associated with lymphadenopathy. No suspicious osseous abnormality. IMPRESSION: Aeration of the lungs appears similar to the prior examination. Electronically signed by: Quita Mehta MD (12/02/2019 8:31 AM) [id number]
--- NOTE | 2019-12-04 13:35 | HP ---
ADMIT DATE: 12/01/2019 ADDENDUM The patient was given another round of Romazicon 0.5 mg as well as 3 ampules or total of 1.2 mg of Narcan. She opened her eyes somewhat, but has not responded. A 1 liter of saline was infused but because of her heart history, cardiomegaly and pleural effusions, we cannot give her much more fluid, therefore blood pressure is still marginal. I got a reading of 90/38 mmHg. I did order dopamine to titrate systolic blood pressure between 90 and 100 systolic. Cultures have been drawn, empiric Rocephin has been administered. We are still waiting for the CT of the head to be done TANNA, as soon as we get her stabilized. Once we have those results, I would favor a Neurology consultation in the morning. I will try to contact the after we have the CT of the head results. ALLA HADLEY MD DR: TAMIKO/bill JOB#: [id number] / [id number]
--- NOTE | 2019-12-04 13:36 | PN ---
DATE: 12/01/[address] of the head showed no acute stroke. CT of the chest demonstrated no acute infiltrates, some pleural effusion; however, the arterial blood gases was tell-tale. Her pH of 7.19, pCO2 of 69, pO2 of 70; therefore, I suspect she has some CO2 narcosis. Her lab work showed a creatinine of 2.7 mg/dL due to her diuretics, this has been held. Her transaminases and liver functions are elevated. AST is 2398, ALT 334, alkaline phosphatase 172, total bilirubin is 2. So, there is a component of hepatitis. Followup CBC and chemistry have been ordered because of the CO2 retention from arterial blood gases. The respiratory acidosis will explain the rise in potassium. This did not need to be treated. We will order BiPAP tonight at 16/8 and we will recheck arterial blood gas in the morning. ALLA HADLEY MD DR: TAMIKO/bill JOB#: [id number] / [id number]
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
== END 2019-12-02 09:00 | disposition short-term general hospital (02) | DRG 871 ==
LOC: 1 SOUTH 17:42
PROVIDERS: ADMIT Internal Medicine; ATTEND Internal Medicine
PROC: 5A09357 Assistance with Respiratory Ventilation, Less than 24 Consecutive Hours, Continuous Positive Airway Pressure (ICD-10-PCS; principal; 2019-12-01)
DX: A41.9 Sepsis, unspecified organism (principal); J96.02 Acute respiratory failure with hypercapnia; J96.01 Acute respiratory failure with hypoxia; E87.2 Acidosis; N17.9 Acute kidney failure, unspecified; K75.9 Inflammatory liver disease, unspecified; F41.8 Other specified anxiety disorders; I25.10 Atherosclerotic heart disease of native coronary artery without angina pectoris; I95.9 Hypotension, unspecified; Z20.828 Contact with and (suspected) exposure to other viral communicable diseases; T50.2X5A Adverse effect of carbonic-anhydrase inhibitors, benzothiadiazides and other diuretics, initial encounter; Z88.2 Allergy status to sulfonamides; Z88.8 Allergy status to other drugs, medicaments and biological substances; Y92.89 Other specified places as the place of occurrence of the external cause
CPT/HCPCS: 36415; 70450; 71045; 71250; 82803; 87635; 94660; J0696; J1265; J2310; J3490; J7030